=== PATIENT | male | born 1955 | race Caucasian/White ===

== ENCOUNTER 2020-09-06 09:53 | Inpatient (IN) | payer OTHER ==
[~2020-09-06] VITALS: Ht 167.6 cm; Wt 79.4 kg
[~2020-09-06 09:53] MED LIST: ECOTRIN81 MG PO; FLONASE 0.05% N16 GM; IMBRUVICA140 MG PO; IMDUR ER TAB 3030 MG PO; KLONOPIN TAB 00.5 MG PO; LOSARTAN-HCTZ1 EAC2 PO; MULTIVITAMINS1 EAC1 PO; NEXIUM20 MG PO; NITROSTAT0.4 MG SL; SINGULAIR10 MG PO; SOTALOL80 MG PO; SPIRIVA RESPIMAT4 GM INH; TAMBOCOR 100 M100 MG PO; TYLENOL 500 MG500 MG PO; VITAMIN B12-FO1 EACH PO
[2020-09-07] MEDS ORDERED: VENTOLIN HFA 66.7 GM INH (19:59)
[2020-09-07] MEDS ORDERED: VITAMIN B-1100 M1 PO (20:01)
[2020-09-07] MEDS ORDERED: ZINC50 MG PO (20:02)
[2020-09-07] MEDS ORDERED: VITAMIN C500 MG PO (20:08)
[2020-09-07] MEDS ORDERED: VITAMIN D 40400 UNIT PO (20:09)
[2020-09-07] MEDS ORDERED: VITAMIN D325 MC6 PO (20:10)
[2020-09-07] MEDS ORDERED: LIPITOR40 MG PO (20:12)
[2020-09-07] MEDS ORDERED: ZYLOPRIM 300 M300 MG PO (20:12)
[2020-09-07] MEDS ORDERED: NEXIUM20 MG PO (20:57)
[2020-09-08 07:39] LABS: BUN/CREATININE RATIO 35 (0-10)
[2020-09-08 07:49] LABS: HEMOGLOBIN 11.5 gm/dl (14.0-17.5); RED BLOOD COUNT 3.87 M/UL (4.20-5.50); WHITE BLOOD COUNT 14.9 K/UL (4.5-11.0)
--- NOTE | 2020-09-08 11:03 | NUR ---
SPOKE WITH DR HOOKER THIS MORNING AROUND 0850 REGARDING THE PATIENTS O2 SATS DROPPING REGARDLESS OF TITRATION. PATIENT WAS PLACED ON AIRVO AND SATS HAVE SINCE THEN CAME UP TO 97% AT THIS TIME. THE PATIENT HAS BEEN INFORMED THAT SINCE HE CANNOT STAND UP OR EVEN SIT ON THE SIDE OF THE BED WITHOUT DESATTING THAT IT WOULD BENEFIT HIM TO HAVE A [place]RAW CATHETER INSERTED. THE PATIENT HAS AGREED TO THIS. THE PATIENT HAS BEEN EDUCATED THAT IT ALSO IS BENEFICIAL FOR HIM TO REMAIN ON BEDREST TO KEEP FROM BEING HYPOXIC. THIS MORNING THE PATIENT SAT UP ON THE BEDSIDE JUST TO USE THE URINAL AND DESAT DOWN TO LOW 70'S. THE PATIENT HAS VERBALIZED UNDERSTANDING. PATIENT LYING IN BED AT THIS TIME IN NO DISTRESS. STAFF ASSISTING WITH ALL NEEDS AT THIS TIME. CALL LIGHT WITHIN REACH. HOB UP.
[2020-09-09 03:16] LABS: HEMOGLOBIN 10.7 gm/dl (14.0-17.5); RED BLOOD COUNT 3.51 M/UL (4.20-5.50)
[2020-09-09 03:25] LABS: WHITE BLOOD COUNT 11.1 K/UL (4.5-11.0)
[2020-09-09 03:27] LABS: BUN/CREATININE RATIO 29 (0-10)
[2020-09-09 06:11] LABS: BORDETELLA PARAPERTUSSIS Not Detected (Not Detectd); BORDETELLA PERTUSSIS Not Detected (Not Detectd); CHLAMYDIA PNEUMONIAE Not Detected (Not Detectd); CORONAVIRUS HKU1 Not Detected (Not Detectd); CORONAVIRUS NL63 Not Detected (Not Detectd); CORONAVIRUS OC43 Not Detected (Not Detectd); CORONOAVIRUS 229E Not Detected (Not Detectd); HUMAN METAPNEUMOVIRUS Not Detected (Not Detectd); HUMAN RHINOVIRUS/ENTEROVIRUS Not Detected (Not Detectd); INFLUENZA A Not Detected (Not Detectd); INFLUENZA B Not Detected (Not Detectd); MYCOPLASMA PNEUMONIAE Not Detected (Not Detectd); PARAINFLUENZA VIRUS 1 Not Detected (Not Detectd); PARAINFLUENZA VIRUS 2 Not Detected (Not Detectd); PARAINFLUENZA VIRUS 3 Not Detected (Not Detectd); PARAINFLUENZA VIRUS 4 Not Detected (Not Detectd); RESPIRATORY SYNCYTIAL VIRUS Not Detected (Not Detectd)
[2020-09-09 08:31] LABS: SARS-CoV-2 DETECTED (Not Detectd)
[2020-09-10 03:22] LABS: HEMOGLOBIN 10.4 gm/dl (14.0-17.5); RED BLOOD COUNT 3.43 M/UL (4.20-5.50); WHITE BLOOD COUNT 11.9 K/UL (4.5-11.0)
[2020-09-10 03:34] LABS: BUN/CREATININE RATIO 33 (0-10)
[2020-09-12 02:12] LABS: HEMOGLOBIN 10.9 gm/dl (14.0-17.5); RED BLOOD COUNT 3.62 M/UL (4.20-5.50); WHITE BLOOD COUNT 10.2 K/UL (4.5-11.0)
[2020-09-12 02:35] LABS: BUN/CREATININE RATIO 46 (0-10)
[2020-09-14 03:57] LABS: HEMOGLOBIN 10.9 gm/dl (14.0-17.5); RED BLOOD COUNT 3.6 M/UL (4.20-5.50); WHITE BLOOD COUNT 10.1 K/UL (4.5-11.0)
[2020-09-14 04:26] LABS: BUN/CREATININE RATIO 45 (0-10)
[2020-09-15 03:38] LABS: BUN/CREATININE RATIO 44 (0-10)
[2020-09-16 02:52] LABS: BUN/CREATININE RATIO 45 (0-10)
[2020-09-17 03:31] LABS: BUN/CREATININE RATIO 32 (0-10)
[2020-09-19] MEDS ORDERED: ELIQUIS 5 MG TAB5 MG PO (09:07)
[2020-09-19] MEDS ORDERED: [UNRECOGNIZED DRUG - OTHER] PO (12:08)
== END 2020-09-19 13:24 | disposition home or self-care (01) | DRG 177 ==
LOC: PROG CARE 09-07 18:50
PROVIDERS: Internal Medicine; ADMIT Internal Medicine
PROC: 8E0ZXY6 Isolation (ICD-10-PCS; principal; 2020-09-07)
PROC: XW033E5 Introduction of Remdesivir Anti-infective into Peripheral Vein, Percutaneous Approach, New Technology Group 5 (ICD-10-PCS; 2020-09-08)
PROC: XW13325 Transfusion of Convalescent Plasma (Nonautologous) into Peripheral Vein, Percutaneous Approach, New Technology Group 5 (ICD-10-PCS; 2020-09-08)
DX: U07.1 COVID-19 (principal); J12.82 Pneumonia due to coronavirus disease 2019; J96.01 Acute respiratory failure with hypoxia; I26.99 Other pulmonary embolism without acute cor pulmonale; C91.11 Chronic lymphocytic leukemia of B-cell type in remission; I10 Essential (primary) hypertension; M10.9 Gout, unspecified; J44.9 Chronic obstructive pulmonary disease, unspecified; F41.9 Anxiety disorder, unspecified; K21.9 Gastro-esophageal reflux disease without esophagitis; T38.0X5A Adverse effect of glucocorticoids and synthetic analogues, initial encounter; R73.9 Hyperglycemia, unspecified; I25.10 Atherosclerotic heart disease of native coronary artery without angina pectoris; Z82.49 Family history of ischemic heart disease and other diseases of the circulatory system; Z87.891 Personal history of nicotine dependence; Z79.82 Long term (current) use of aspirin; Z79.899 Other long term (current) drug therapy; K59.00 Constipation, unspecified
CPT/HCPCS: 36415; 71045; 71046; 80048; 80053; 82803; 82962; 83036; 83605; 85025; 86900; 86901; 86927; 87040; 87070; 87205; 87633; 94640; 94664; 94760; 97110-GP-CQ; 97116-GP-CQ; 97161; 97166; 97530-GP-CQ; 97535; J0692; J1100; J1650; J3370; J7030; J7050; J7070

== ENCOUNTER → 2020-11-03 | Outpatient (CLI) | payer OTHER ==
[~2020-11-03] MED LIST changes: +ELIQUIS 5 MG TAB5 MG PO; +LIPITOR40 MG PO; +VENTOLIN HFA 66.7 GM INH; +VITAMIN B-1100 M1 PO; +VITAMIN C500 MG PO; +VITAMIN D 40400 UNIT PO; +VITAMIN D325 MC6 PO; +ZINC50 MG PO; +ZYLOPRIM 300 M300 MG PO; +[UNRECOGNIZED DRUG - OTHER] PO
== END ==
LOC: EXRD 14:40
DX: J84.10 Pulmonary fibrosis, unspecified (principal); J18.9 Pneumonia, unspecified organism; R91.8 Other nonspecific abnormal finding of lung field
CPT/HCPCS: 71046; 94060; 94729

== ENCOUNTER → 2021-02-21 | Outpatient (CLI) | payer OTHER | LOC: HEART 5 14:37 | DX: Z87.898 Personal history of other specified conditions (principal) | CPT/HCPCS: 94010 ==

== ENCOUNTER → 2021-08-23 | Outpatient (CLI) | payer OTHER | LOC: EXRD 15:12 | DX: J84.10 Pulmonary fibrosis, unspecified (principal) | CPT/HCPCS: 71046 ==